=== PATIENT | male | born 1995 | race Caucasian/White ===

== ENCOUNTER 2019-03-04 16:47 | Emergency (ER) | payer BC ==
[~2019-03-04] VITALS: Ht 170.1 cm; Wt 82.6 kg
[~2019-03-04 16:47] MED LIST: DOXYCYCLINE HY100 M3 PO; MOTRIN800 MG PO; Motrin,Rufen800 MG PO; NKHM
[2019-03-04 16:48] VITALS: BP 130/73
[2019-03-04] MEDS ORDERED: ANTIBIOTIC28.4 GM T (17:55)
== END 2019-03-04 18:01 | disposition home or self-care (01) ==
LOC: ED 16:47
DX: S61.411A Laceration without foreign body of right hand, initial encounter (principal); Z88.1 Allergy status to other antibiotic agents; W45.8XXA Other foreign body or object entering through skin, initial encounter; Y93.89 Activity, other specified; Y92.89 Other specified places as the place of occurrence of the external cause; Y99.8 Other external cause status